=== PATIENT | female | born 1965 | race African-American/Black ===

== ENCOUNTER 2018-01-11 09:55 | Day surgery (SDC) | payer BC, OTHER ==
[2018-01-10 15:08] VITALS: BMI 35.2
[2018-01-11 12:33] VITALS: TEMP 97.8
[2018-01-11 13:41] VITALS: BP 131/81; PULSE 56
--- NOTE | 2018-01-14 16:00 | PATH ---
Surgical Pathology Report Patient Name: KYLAH WRIGHT [facility]. Rec. #: [id number] /Age/Gender: 1965 (Age: 52) / F Account: [id number] Location: U-ENDOSCOPY Taken: 01/11/2018 Received: 01/11/2018 Reported: 01/14/2018 Physicians: Yesenia Owens M.D. Specimen(s) Received A: BX 2ND PORTION DUODENUM AND BULB B: BX ANTRUM Clinical History Abdominal pain, rule out ulcer, adenoma surveillance colon Postoperative diagnosis: Hiatal hernia, GERD, diverticulosis, internal hemorrhoids Final Diagnosis A. SECOND PORTION OF DUODENUM AND BULB, BIOPSY: DUODENALMUCOSA WITH NO DIAGNOSTIC ABNORMALITIES. NO HISTOLOGIC EVIDENCE OF CELIAC DISEASE. B. ANTRUM, BIOPSY: GASTRIC MUCOSA WITH NO SIGNIFICANT PATHOLOGIC FINDINGS. IMMUNOSTAINS FOR H. PYLORI ORGANISMS IS NEGATIVE. Electronically Signed Ligia Sosa M.D. Gross Description A. Received in formalin, labeled "second portion of duodenum and bulb" are 3 deutsch, irregular portions of soft tissue ranging from 0.1-0.3 cm. in greatest dimension. The specimens are submitted in toto in one cassette. B. Received in formalin, labeled "biopsy antrum" are 4 deutsch, irregular portions of soft tissue ranging from 0.2-0.6 cm. in greatest dimension. The specimens are submitted in toto in one cassette. 01/11/2018 saudi01/11/2018
== END 2018-01-11 13:42 | disposition home or self-care (01) ==
LOC: JASU-ENDO 09:55
PROVIDERS: ATTEND Internal Medicine Gastroenterology
PROC: 0DB68ZX Excision of Stomach, Via Natural or Artificial Opening Endoscopic, Diagnostic (ICD-10-PCS; 2018-01-11)
PROC: 0DJD8ZZ Inspection of Lower Intestinal Tract, Via Natural or Artificial Opening Endoscopic (ICD-10-PCS; 2018-01-11)
PROC: 0DB98ZX Excision of Duodenum, Via Natural or Artificial Opening Endoscopic, Diagnostic (ICD-10-PCS; principal; 2018-01-11 11:00)
DX: Z12.11 Encounter for screening for malignant neoplasm of colon (principal); K57.30 Diverticulosis of large intestine without perforation or abscess without bleeding; K21.0 Gastro-esophageal reflux disease with esophagitis; K44.9 Diaphragmatic hernia without obstruction or gangrene
CPT/HCPCS: 43239; G0121; 88305-TC; 88342-TC